=== PATIENT | female | born 1960 | race Caucasian/White ===

== ENCOUNTER 2018-03-02 21:03 | Observation (INO) ==
[2018-03-02 21:42] LABS: Basophils # 0.1 K/mcL (0.0-0.2); Basophils % 0.7 %; Eosinophils # 0.3 K/mcL (0.0-0.6); Eosinophils % 2.8 %; Hematocrit 39.8 % (35.3-44.9); Hemoglobin 13.6 g/dL (11.5-15.4); Immature Granulocytes % 0.2 % (0-4); Lymphocytes # 2.5 K/mcL (0.6-4.6); Lymphocytes % 25.5 %; Mean Corpuscular HGB Conc 34.2 g/dL (31.6-35.5); Mean Corpuscular Hemoglobin 30.5 pg (28.0-33.3); Mean Corpuscular Volume 89.2 fL (83.0-100.0); Mean Platelet Volume 10.2 fL (9.4-12.4); Monocytes # 0.6 K/mcL (0.0-1.3); Monocytes % 5.8 %; Neutrophils # 6.5 K/mcL (1.6-8.9); Platelet Count 285 K/mcL (140-400); Red Blood Count 4.46 M/mcL (3.82-4.97); Red Cell Distribution Width 12.3 % (11.5-14.5)
[2018-03-02 21:49] LABS: Prothrombin Time 11.2 Seconds (9.4-12.1)
--- NOTE | 2018-03-02 21:50 | Emergency Department Note ---
Addendum entered and electronically signed by Jesse Bull DO 03/05/18 18:30: Original Note: Disposition Clinical Impression: Chest pain Qualifiers: Chest pain type: unspecified Qualified Code(s): R07.9 - Chest pain, unspecified Disposition: Admitted As Inpatient Condition: Good Referrals: Jackie Ellison, [employer] [Primary Care Provider] - Forms: ED Satisfaction Letter Time of Disposition: 22:12 Chest Pain HPI - General Chief Complaint: ED Chest Pain Stated Complaint: CP, Sent from Time Seen by Provider: 03/02/18 21:14 Source: patient Mode of arrival: ambulatory Limitations: no limitations Vital Signs Reviewed: Yes Nursing Notes Reviewed: Yes - History of Present Illness HPI Narrative: Patient is a 57-year-old female with past medical history hyperlipidemia. She presents today due to concern for chest discomfort. She states that she was eating around 3 PM today. She states that she had a big lunch. During that meal, she started having some substernal chest discomfort. She denies noting any sensation of fullness or choking on food, did not eat anything with bones in it. She states that she ate a sandwich with lunch meat on it.. She was able to pass liquids and food after that. She describes the pain as a constant dull ache that gets sharp when she moves forward or takes a deep breath in and out. She also notes some pain in between her shoulder blades. She does note that she has some chronic back discomfort due to poor posture and receives massage therapy often. She says that this feels somewhat similar to her chronic back discomfort and is not worse and then her usual baseline. Denies any shortness of breath, fevers, nausea, vomiting, drooling, URI symptoms, abdominal pain, dysuria, hematuria. Denies any previous cardiac history such as [place] or stent placement. Denies any history of PE or DVT. She states that she went to urgent care and had an EKG performed, was given aspirin 325 mg and a Vernon and then sent here for further care. Severity scale (1-10): 6 - Related Data Home Medications Medication Instructions Recorded Confirmed Ezetimibe [Zetia] 10 mg PO DAILY 06/18/16 06/18/16 Sertraline [Zoloft] 100 mg PO DAILY 06/18/16 06/18/16 Hydrocodone. 10/29/18 Tylenol 03/02/18 Allergies Allergy/AdvReac Type Severity Reaction Status Date / Time No Known Allergies Allergy Verified 03/02/18 20:18 All systems ED: reviewed and negative except as stated. Constitutional: Denies: fever Cardiovascular: Reports: chest pain Respiratory: Denies: cough, dyspnea Gastrointestinal: Denies: abdominal pain, nausea, vomiting, diarrhea, constipation Genitourinary: Denies: urgency, dysuria, frequency, hematuria Integumentary: Denies: rash Neurological: Denies: headache, weakness, numbness, paresthesias Chest Pain PMH - Past Medical History Medical history: Reports: hyperlipidemia Surgical history: Reports: , knee replacement, orthopedic, other, other Psychiatric history: Reports: anxiety - Social History Smoking Status: Never smoker Alcohol use: Reports: none Drug use: Reports: none Physical Exam - General Limitations: no limitations General appearance: alert, in no apparent distress - Head Head exam: atraumatic, normocephalic, normal inspection - Eye Eye exam: Present: normal appearance, PERRL, EOMI - ENT ENT exam: normal exam, normal oropharynx, mucous membranes moist - Neck Neck exam: Present: normal inspection, full ROM, trachea midline - Chest Chest inspection: Present: normal inspection, symmetric chest wall rise, tenderness (Mild tenderness mid sternal to palpation the patient states is different from subjective substernal pain). Absent: rash - Respiratory Respiratory exam: Present: normal lung sounds bilaterally - Cardiovascular Cardiovascular exam: Present: regular rate, normal rhythm, normal heart sounds - Abdominal Exam Abdominal exam: Present: soft, Non-Tender. Absent: tenderness, distention, guarding, rebound, rigidity - Extremities Exam Extremities exam: Present: normal inspection, full ROM. Absent: tenderness, pedal edema - Back Exam Back exam: Present: normal inspection, full ROM. Absent: tenderness, muscle spasm, paraspinal tenderness, vertebral tenderness - Neurological Exam Neurological exam: Present: alert, oriented X3 - Psychiatric Psychiatric exam: Present: normal affect, normal mood - Skin Skin exam: Present: warm, dry, intact, normal color Course Course Narrative: Patient blood pressure mildly elevated. Otherwise, rest of the vitals within normal limits. Physical exam showed heart regular rate and rhythm, lungs clear to auscultation, abdomen soft and nontender. No tenderness of the reproducible between patient's shoulder blades, no midline or paraspinal muscle tenderness of the back. Patient did have some tenderness to palpation of the mid sternum but states that this is different than the subjective pain that she is experiencing. Currently rates her pain a 6 out of 10. She did state that she received aspirin and Vernon at urgent care prior to transfer here. She is curr ently declining any additional pain medication at this time. I do not feel that this is a food bolus impaction at this time as patient is having no difficulty with swallowing liquids, swelling medications, swelling additional food after this event. No drooling. No reflux of any food or water contents. No food consumed with bones. Patient's EKG does show some nonspecific T-wave inversions that are new from her previous EKG. Chest x-ray was negative. Troponin negative. No major abnormality on blood work. Patient has never had a stress test or heart catheter in the past. She is still having some discomfort. Her heart score is a 4. I believe that her risk factors, EKG changes, concerning story for next to keep her for observation for trending troponin levels and possible stress test in the morning. 22:28 patient was reassessed. She is having some continued chest discomfort and is now agreeable with trying some pain medication. She did not want to try morphine or nitroglycerin. We discussed fentanyl. She is agreeable with this plan. We will go ahead and give the patient 50 g of fentanyl at this time. We will proceed with the above plan. Chest X-Ray 03/02/18 21:19 IMPRESSION: No acute process. D/ / Mando Parish MD / Mando Parish MD Interpreting Provider: Mando Parish MD Vital Signs Temperature 98 F 03/02/18 21:08 Pulse Rate 70 03/02/18 21:08 Respiratory Rate 16 03/02/18 21:08 Blood Pressure 143/85 03/02/18 21:08 O2 Sat by Pulse Oximetry 96 03/02/18 21:08 Temperature 98 F 03/02/18 21:08 Pulse Rate 69 03/02/18 21:52 Respiratory Rate 20 03/02/18 21:52 Blood Pressure 122/81 03/02/18 21:52 O2 Sat by Pulse Oximetry 97 03/02/18 21:52 Oxygen Delivery Oxygen Delivery Room Air Chest Pain - MDM Narrative Medical decision making narrative: Patient blood pressure mildly elevated. Otherwise, rest of the vitals within normal limits. Physical exam showed heart regular rate and rhythm, lungs clear to auscultation, abdomen soft and nontender. No tenderness of the reproducible between patient's shoulder blades, no midline or paraspinal muscle tenderness of the back. Patient did have some tenderness to palpation of the mid sternum but states that this is different than the subjective pain that she is experiencing. Currently rates her pain a 6 out of 10. She did state that she received aspirin and Vernon at urgent care prior to transfer here. She is cur rently declining any additional pain medication at this time. I do not feel that this is a food bolus impaction at this time as patient is having no difficulty with swallowing liquids, swelling medications, swelling additional food after this event. No drooling. No reflux of any food or water contents. No food consumed with bones. Patient's EKG does show some nonspecific T-wave inversions that are new from her previous EKG. Chest x-ray was negative. Troponin negative. No major abnormality on blood work. Patient has never had a stress test or heart catheter in the past. She is still having some discomfort. Her heart score is a 4. I believe that her risk factors, EKG changes, concerning story for next to keep her for observation for trending troponin levels and possible stress test in the morning. 22:28 patient was reassessed. She is having some continued chest discomfort and is now agreeable with trying some pain medication. She did not want to try morphine or nitroglycerin. We discussed fentanyl. She is agreeable with this plan. We will go ahead and give the patient 50 g of fentanyl at this time. We will proceed with the above plan. - Medical Records Medical records reviewed: Yes I reviewed the patient's medical records. - Lab Data Lab results reviewed: Yes I reviewed the patient's lab results. Result diagrams: 03/02/18 21:20 03/02/18 21:20 Lab Results 03/02/18 03/02/18 03/02/18 Range/Units 21:19 21:20 21:20 WBC 10.0 (4.3-11.1) K/mcL RBC 4.46 (3.82-4.97) M/mcL Hgb 13.6 (11.5-15.4) g/dL Hct 39.8 (35.3-44.9) % MCV 89.2 (83.0-100.0) fL MCH 30.5 (28.0-33.3) pg MCHC 34.2 (31.6-35.5) g/dL RDW 12.3 (11.5-14.5) % Plt Count 285 (140-400) K/mcL MPV 10.2 (9.4-12.4) fL Immature Gran % 0.2 (0-4) % Seg Neutrophils % 65.0 % Lymphocytes % 25.5 % Monocytes % 5.8 % Eosinophils % 2.8 % Basophils % 0.7 % Neutrophils # 6.5 (1.6-8.9) K/mcL Lymphocytes # 2.5 (0.6-4.6) K/mcL Monocytes # 0.6 (0.0-1.3) K/mcL Eosinophils # 0.3 (0.0-0.6) K/mcL Basophils # 0.1 (0.0-0.2) K/mcL PT 11.2 (9.4-12.1) Seconds INR 1.0 APTT 35.7 (26.0-36.0) Seconds Sodium 138 (136-145) mEq/L Potassium 3.9 (3.5-5.1) mEq/L Chloride 103 (98-107) mEq/L Carbon Dioxide 27 (23-29) mEq/L BUN 19 (6-20) mg/dL Creatinine 1.00 (0.60-1.20) mg/dL Est GFR ( Amer) > 60 (> 60) Est GFR (Non-Af Amer) 57 L (> 60) BUN/Creatinine Ratio 19 (6-26) Glucose 116 H (70-105) mg/dL Calculated Osmolality 289 (280-300) Calcium 8.9 (8.6-10.3) mg/dL Troponin I < 0.03 (< 0.04) ng/mL - Radiology Data Radiology results reviewed: Yes I reviewed the patient's radiology results. Chest X-Ray 03/02/18 21:19 IMPRESSION: No acute process. D/ / Mando Parish MD / Mando Parish MD Interpreting Provider: Mando Parish MD - EKG Data EKG attestation: Yes I reviewed and interpreted this EKG. EKG results narrative: 03/02/2018 at 21:15. Normal sinus rhythm. Rate 68. [place] 194. QRS 116. QTC 4- 40. Normal axis. No acute ST elevation or depression. T-wave inversion in lead aVL, V2 that is new from previous EKG on 04/06/2010. Partial left bundle branch block present that is also present on old EKG. Heart Score - Score History: Moderately Suspicious EKG: Non Specific repolarisation Disturbance Age: 45-65 Risk Factors: 1-2 risk factors Troponin: Less than normal limit HEART Score Total: 4 S.B.A.R. - S.B.A.R. Situation: Demographics, MOA Background: Presenting Complaint, Relevant PMH, Meds, & Allergies Assessment: Vital Signs, Course and respsone to treatment, Exam Concerns, Patient/Family Expectation, Pertinant Lab Results Recommendation: Barrier(s) to disposition, Recommendation based on pending studies, treatments, or consults S.B.A.R. Report Given to: Dr Phelps
[2018-03-02 21:52] LABS: Activated Partial Thrombo Time 35.7 Seconds (26.0-36.0)
[2018-03-02 21:56] LABS: BUN/Creatinine Ratio 19 (6-26); Blood Urea Nitrogen 19 mg/dL (6-20); Calcium 8.9 mg/dL (8.6-10.3); Carbon Dioxide 27 mEq/L (23-29); Chloride 103 mEq/L (98-107); Glucose 116 mg/dL (70-105); Osmolality,Calculated 289 (280-300); Potassium 3.9 mEq/L (3.5-5.1); Sodium 138 mEq/L (136-145); Troponin I < 0.03 ng/mL (< 0.04); eGFR For Non-African Americans 57 (> 60)
--- NOTE | 2018-03-02 22:26 | Emergency Department Note ---
Disposition Clinical Impression: Chest pain Qualifiers: Chest pain type: unspecified Qualified Code(s): R07.9 - Chest pain, unspecified Disposition: Admitted As Inpatient Condition: Good Referrals: Jackie Ellison CNP [Primary Care Provider] - Forms: ED Satisfaction Letter General Adult HPI - General Chief complaint: ED Chest Pain Stated complaint: CP, Sent from Time Seen by Provider: 03/02/18 21:14 Source: patient Mode of arrival: ambulatory Limitations: no limitations - History of Present Illness Pain Scale: 6 - Related Data Home Medications Medication Instructions Recorded Confirmed Ezetimibe [Zetia] 10 mg PO DAILY 06/18/16 06/18/16 Sertraline [Zoloft] 100 mg PO DAILY 06/18/16 06/18/16 Hydrocodone. 03/02/18 Tylenol 03/02/18 Allergies Allergy/AdvReac Type Severity Reaction Status Date / Time No Known Allergies Allergy Verified 03/02/18 20:18 Constitutional: Denies: fever Cardiovascular: Reports: chest pain Respiratory: Denies: cough, dyspnea Gastrointestinal: Denies: abdominal pain, nausea, vomiting, diarrhea, constipation Genitourinary: Denies: urgency, dysuria, frequency, hematuria Integumentary: Denies: rash Neurological: Denies: headache, weakness, numbness, paresthesias Past Medical History - Past Medical History Medical history: Reports: hyperlipidemia Surgical history: Reports: , knee replacement, orthopedic, other, other Psychiatric history: Reports: anxiety - Social History Smoking Status: Never smoker Smokeless Tobacco Status: No Alcohol use: Reports: none Drug use: Reports: none Physical Exam - General Limitations: no limitations General appearance: alert, in no apparent distress Course Vital Signs Temperature 98 F 03/02/18 21:08 Pulse Rate 70 03/02/18 21:08 Respiratory Rate 16 03/02/18 21:08 Blood Pressure 143/85 03/02/18 21:08 O2 Sat by Pulse Oximetry 96 03/02/18 21:08 Temperature 98 F 03/02/18 21:08 Pulse Rate 69 03/02/18 21:52 Respiratory Rate 20 03/02/18 21:52 Blood Pressure 122/81 03/02/18 21:52 O2 Sat by Pulse Oximetry 97 03/02/18 21:52 Oxygen Delivery Oxygen Delivery Room Air Medical Decision Making - Lab Data Result diagrams: 03/02/18 21:20 03/02/18 21:20 Lab Results 03/02/18 03/02/18 03/02/18 Range/Units 21:19 21:20 21:20 WBC 10.0 (4.3-11.1) K/mcL RBC 4.46 (3.82-4.97) M/mcL Hgb 13.6 (11.5-15.4) g/dL Hct 39.8 (35.3-44.9) % MCV 89.2 (83.0-100.0) fL MCH 30.5 (28.0-33.3) pg MCHC 34.2 (31.6-35.5) g/dL RDW 12.3 (11.5-14.5) % Plt Count 285 (140-400) K/mcL MPV 10.2 (9.4-12.4) fL Immature Gran % 0.2 (0-4) % Seg Neutrophils % 65.0 % Lymphocytes % 25.5 % Monocytes % 5.8 % Eosinophils % 2.8 % Basophils % 0.7 % Neutrophils # 6.5 (1.6-8.9) K/mcL Lymphocytes # 2.5 (0.6-4.6) K/mcL Monocytes # 0.6 (0.0-1.3) K/mcL Eosinophils # 0.3 (0.0-0.6) K/mcL Basophils # 0.1 (0.0-0.2) K/mcL PT 11.2 (9.4-12.1) Seconds INR 1.0 APTT 35.7 (26.0-36.0) Seconds Sodium 138 (136-145) mEq/L Potassium 3.9 (3.5-5.1) mEq/L Chloride 103 (98-107) mEq/L Carbon Dioxide 27 (23-29) mEq/L BUN 19 (6-20) mg/dL Creatinine 1.00 (0.60-1.20) mg/dL Est GFR ( Amer) > 60 (> 60) Est GFR (Non-Af Amer) 57 L (> 60) BUN/Creatinine Ratio 19 (6-26) Glucose 116 H (70-105) mg/dL Calculated Osmolality 289 (280-300) Calcium 8.9 (8.6-10.3) mg/dL Troponin I < 0.03 (< 0.04) ng/mL Attestation Statement - Attestation Attestation: I examined this patient and my medical decision-making was reviewed with the Resident Physician. I agree with the documented findings, disposition and treatment plan as described except to the extent set forth below. 57-year-old female presents emergency room for chest pain. Substernal in nature. She still having intermittent chest discomfort. Worse with exhalation. Patient has a heart score of 4. Due to the intermittent chest discomfort and heart score forward admit the patient for ACS observation. She has no previous history of any coronary problems.
[2018-03-02] MEDS ORDERED: *HR* FentaNYL (PF) 100 MCG/2 ML VIAL IVP ONE (22:28)
[2018-03-02] MEDS ORDERED: Ketorolac 15 MG/ML VIAL IVP ONE (23:22)
[2018-03-03] MEDS ORDERED: Naloxone 0.4 MG/ML INJ IVP PRN (00:16)
[2018-03-03] MEDS ORDERED: Nitroglycerin 0.4 MG TAB.SUBL SL PRN (00:18)
[2018-03-03] MEDS ORDERED: Melatonin 3 MG TABLET PO PRN (00:19)
[2018-03-03] MEDS ORDERED: 0.9 % Sodium Chloride 1,000 ML IVC SCH (00:30)
[2018-03-03 04:07] LABS: Hematocrit 36.6 % (35.3-44.9); Mean Corpuscular HGB Conc 35.5 g/dL (31.6-35.5); Mean Corpuscular Hemoglobin 31.3 pg (28.0-33.3); Platelet Count 260 K/mcL (140-400); Red Blood Count 4.16 M/mcL (3.82-4.97); Red Cell Distribution Width 12.6 % (11.5-14.5)
[2018-03-03 04:26] LABS: Alanine Aminotransferase 26 Units/L (7-52); Albumin 4.2 g/dL (3.5-5.7); Albumin/Globulin Ratio 2.2 (1.1-2.2); Alkaline Phosphatase 53 Units/L (34-104); Aspartate Amino Transferase 17 Units/L (13-39); BUN/Creatinine Ratio 23 (6-26); Bilirubin,Total 0.3 mg/dL (0.3-1.0); Blood Urea Nitrogen 17 mg/dL (6-20); Carbon Dioxide 26 mEq/L (23-29); Chloride 104 mEq/L (98-107); Globulin 1.9 g/dL (2.4-3.5); Glucose 95 mg/dL (70-105); Osmolality,Calculated 285 (280-300); Sodium 137 mEq/L (136-145); Total Protein 6.1 g/dL (6.4-8.9); eGFR For Non-African Americans > 60 (> 60)
--- NOTE | 2018-03-03 04:48 | Internal Med History&Physical ---
Date of Encounter: 03/03/18 Time of Encounter: 04:48 Internal Medicine - H&P: HPI Chief complaint: Chest Pain History of present illness: Patient is a 57-year-old female with past medical history hyperlipidemia who presents with chest pain. Patient states that around 3 PM today while eating lunch started having some substernal chest discomfort. Pain described as a co nstant dull ache aggravated when she moves forward or takes a deep breath in and out. She also notes some pain in between her shoulder blades. She does note that she has some chronic back discomfort due to poor posture and receives massage therapy often. She says that this feels somewhat similar to her chronic back discomfort and is not worse and then her usual baseline. Denies any shortness of breath, fevers, nausea, vomiting, drooling, URI symptoms, abdominal pain, dysuria, hematuria. Denies any previous cardiac history such as [place] or stent placement. Denies any history of PE or DVT. She states that she went to urgent care and had an EKG performed, was given aspirin 325 mg and a [place] and then sent here for further care. Past Med Surg Social Fam HX - Past Medical History Medical history: hyperlipidemia, thyroid disease Additional medical history: hypothyroidism Psychiatric history: anxiety - Past Surgical History Surgical History: , knee replacement, orthopedic, other, other Additional surgical history: Bilat knnes, Bilat joint fusion feet, colonoscopy, bilat catarcts - Social History Smoking Status: Never smoker Smokeless Tobacco Status: No Alcohol use: none Drug use: none Internal Medicine - H&P: Meds Ezetimibe [Zetia] 10 mg PO DAILY 06/18/16 [History] Sertraline [Zoloft] 100 mg PO DAILY 06/18/16 [History] Acetaminophen [Tylenol] 500 mg PO Q6H PRN 03/02/18 [History] Cholecalciferol (Vitamin D3) [Vitamin D3] 10,000 unit PO QAM 03/02/18 [History] Hydrocodone/Acetaminophen [Hydrocodone-Acetamin 5-300 mg] 1 tab PO DAILY PRN 03/02/18 [History] Progesterone,Micronized [Progesterone] 200 mg PO QPM 03/02/18 [History] Thyroid,Pork [Nature-Throid] 48.75 mg PO QAM 03/02/18 [History] Zolpidem [Ambien] 10 mg PO HS 03/02/18 [History] Allergy/AdvReac Type Severity Reaction Status Date / Time No Known Allergies Allergy Verified 03/02/18 20:18 All Systems PM: A 10-system review of systems was performed and is negative for pertinent findings except as documented above in the HPI. - Constitutional Constitutional: no chills, no fever(s), no night sweats - EENT Eyes: no change in vision, no discharge, no pain, no photophobia Ears: no ear discharge, no ear pain, no tinnitus Nose, mouth and throat: no dysphagia, no nasal discharge, no neck pain, no sore throat - Cardiovascular Cardiovascular ROS IM: no chest pain, no diaphoresis, no dyspnea, no lightheadedness, no palpitations, no syncope - Respiratory Respiratory: no cough, no dyspnea, no wheezing, no excessive phlegm production - Gastrointestinal Gastrointestinal: no abdominal pain, no diarrhea, no hematemesis, no hematochezia, no melena, no nausea, no vomiting - Genitourinary Genitourinary: no change in urinary stream, no dysuria, no flank pain, no hematuria - Musculoskeletal Musculoskeletal ROS IM: no numbness, no tingling - Integumentary Integumentary IM: no rash, no unusual bruising - Neurological Neurological ROS: no confusion, no convulsions, no focal weakness, no numbness, no tingling, no tremor(s) - Hematologic/Lymphatic Hematologic/Lymphatic: no easy bruising - Constitutional Vitals: Temp Pulse Resp BP Pulse Ox 97.6 F 68 17 107/68 93 03/03/18 02:59 03/03/18 02:59 03/03/18 02:59 03/03/18 02:59 03/03/18 02:59 Exam: General: Alert and oriented Skin:Normal color, no rash, no lesions. HEENT:EOM, pupils equal, round and reactive. Cardiovascular:Normal S1 & S2, no rubs, murmurs or gallops. No JVD. Pulse regular. Lungs:Normal breath sounds, no wheezes or crackles. Abdomen:Soft, non-tender, no rigidity. Extremities:No deformity, no edema or tenderness, no joint swelling or clubbing. Neurological:Normal cognition and motor skills. Pulses:Carotid and radial pulses normal +2. Rest of the physical exam is non contributory Internal Med - H&P Results - Labs CBC & Chem 7: 03/03/18 03:18 03/03/18 03:18 Labs: Short CBC 03/02/18 03/03/18 Range/Units 21:20 03:18 WBC 10.0 7.5 (4.3-11.1) K/mcL Hgb 13.6 13.0 (11.5-15.4) g/dL Hct 39.8 36.6 (35.3-44.9) % Plt Count 285 260 (140-400) K/mcL Neutrophils # 6.5 (1.6-8.9) K/mcL BMP 03/02/18 03/03/18 21:20 03:18 Sodium 138 137 Potassium 3.9 4.0 Chloride 103 104 Carbon Dioxide 27 26 BUN 19 17 Creatinine 1.00 0.73 Glucose 116 H 95 Calcium 8.9 9.0 Cardiac Enzymes 03/02/18 03/03/18 Range/Units 21:20 03:18 Troponin I < 0.03 < 0.03 (< 0.04) ng/mL Liver Function 03/03/18 Range/Units 03:18 Total Bilirubin 0.3 (0.3-1.0) mg/dL AST 17 (13-39) Units/L ALT 26 (7-52) Units/L Alkaline Phosphatase 53 (34-104) Units/L Albumin 4.2 (3.5-5.7) g/dL - Impressions ITS Impressions Chest X-Ray 03/02/18 21:19 IMPRESSION: No acute process. D/ / Mando Parish MD / Mando Parish MD Interpreting Provider: Mando Parish MD - Assessment and plan (1) Chest pain Current Visit: Yes Status: Acute Assessment and plan: Atypical chest pain. Patient has risk factors for age and hyperlipidemia. She is a nonsmoker and does not drink. EKG was unremarkable. Initial troponin was negative. Telemetry Trend troponin Sublingual O's and when necessary Echocardiogram Stress test in the morning Qualifiers: Chest pain type: unspecified Qualified Code(s): R07.9 - Chest pain, unspecified (2) Hyperlipidemia Current Visit: Yes Status: Acute Assessment and plan: Continue with Ezetimibe Qualifiers: Hyperlipidemia type: unspecified Qualified Code(s): E78.5 - Hyperlipidemia, unspecified (3) Hypothyroidism Current Visit: Yes Status: Acute Assessment and plan: Continue home thyroid medication Qualifiers: Hypothyroidism type: unspecified Qualified Code(s): E03.9 - Hypothyroidism, unspecified (4) DVT prophylaxis Current Visit: Yes Status: Acute Assessment and plan: Subcutaneous heparin - Time Spent With Patient Total time spent is greater than 50% in coordination of care (as documented) at patient's floor/unit and/or counseling patient:
[2018-03-03] MEDS ORDERED: *HR* Heparin 5,000 UNIT/ML VIAL SQ SCH (06:00)
[2018-03-03] MEDS ORDERED: Regadenoson 0.4 MG/5 ML SYRINGE IVP ONE (07:46)
[2018-03-03] MEDS ORDERED: Cholecalciferol (D-3) 1,000 UNIT TABLET PO SCH (09:00)
[2018-03-03] MEDS ORDERED: (Ezetimibe [Zetia] 10 MG) PO SCH (09:00)
[2018-03-03] MEDS ORDERED: THYROID PORK 48.75 MG PO SCH (09:00)
[2018-03-03 11:20] VITALS: BP 115/74
--- NOTE | 2018-03-03 11:43 | Discharge Summary ---
- NOTES TO OUTPATIENT PROVIDER Notes to Outpatient Provider: f/u with PCP in one week. Please come back for part 2 stress test tomorrow 7 AM at [facility] Orders not resulted at time of discharge: Pending orders 03/03/18 00:20 NM melina perf SPECT multi [NM] Routine 03/03/18 09:20 Troponin I Q6H Date of Encounter: 03/03/18 Time of Encounter: 11:39 - Discharge Diagnosis (1) Chest pain Priority: Primary Status: Acute Qualifiers: Chest pain type: unspecified Qualified Code(s): R07.9 - Chest pain, unspecified (2) Hyperlipidemia Priority: Secondary Status: Acute Qualifiers: Hyperlipidemia type: unspecified Qualified Code(s): E78.5 - Hyperlipidemia, unspecified (3) DVT prophylaxis Priority: Secondary Status: Acute (4) Hypothyroidism Priority: Secondary Status: Acute Qualifiers: Hypothyroidism type: unspecified Qualified Code(s): E03.9 - Hypothyroidism, unspecified Hospital course: Ms. Abdi is a 57 year old female with past medical history hyperlipidemia pt presented to ER with chest pain. Patient stated that around 3 PM while eating lunch started having some substernal chest discomfort. Pain described as a constant dull and burning ache aggravated when she moves forward or takes a deep breath in and out. Pt was admitted in the hospital and placed her on panel monitor. Her serial troponin were negative. She did got for nuclear stress test today, pt does require 2 day stress test due to her BMP at 39. Pt do not wanted to stay in the hospital for part to tomorrow. Since pt denied any CP, no EKG changes noticed and her troponin are negative so will d/c her home today. Recommend to come back for part 2 in AM. I got her contact number will discuss with about test results in AM, also will send the results to PCP .Reviewed [facility] did now show any septal motion abnormality. - Time Spent with Patient Total time spent providing and/or coordinating discharge services: - Discharge Medications Prescriptions: Aspirin [Adult Aspirin] 81 mg PO DAILY #30 tablet.dr Morelos Medications: Ezetimibe [Zetia] 10 mg PO DAILY 06/18/16 [History] Sertraline [Zoloft] 100 mg PO DAILY 06/18/16 [History] Acetaminophen [Tylenol] 500 mg PO Q6H PRN 03/02/18 [History] Cholecalciferol (Vitamin D3) [Vitamin D3] 10,000 unit PO QAM 03/02/18 [History] Hydrocodone/Acetaminophen [Hydrocodone-Acetamin 5-300 mg] 1 tab PO DAILY PRN 03/02/18 [History] Progesterone,Micronized [Progesterone] 200 mg PO QPM 03/02/18 [History] Thyroid,Pork [Nature-Throid] 48.75 mg PO QAM 03/02/18 [History] Zolpidem [Ambien] 10 mg PO HS 03/02/18 [History] Aspirin [Adult Aspirin] 81 mg PO DAILY #30 tablet.dr 03/03/18 [Rx] Allergies/Adverse Reactions: Allergy/AdvReac Type Severity Reaction Status Date / Time No Known Allergies Allergy Verified 03/02/18 20:18 Date of admission: 03/03/18 00:01 Primary care physician: Jackie Ellison CNP - Constitutional Vitals: Temp Pulse Resp BP Pulse Ox 97.9 F 72 18 115/74 95 03/03/18 11:17 03/03/18 11:17 03/03/18 11:17 03/03/18 11:17 03/03/18 11:17 General appearance: Present: A&O X 3, no acute distress, answers questions appropriately Exam: aa - Head Head exam: Present: atraumatic, normal inspection - Neck Neck exam general surgery: Present: supple - Respiratory Respiratory exam: Present: decreased breath sounds. Absent: rales, respiratory distress, rhonchi, wheezes - Cardiovascular Cardiovascular exam: Present: RRR, +S1, +S2 - GI/Abdominal GI/Abdominal exam: Present: normal bowel sounds, soft. Absent: rebound, rigid, tenderness - Extremities Exam Extremities exam: Absent: calf tenderness, pedal edema, tenderness - Back Exam Back exam: Absent: CVA tenderness (L), CVA tenderness (R) - Neurological Exam Neurological exam: Present: alert, oriented X3 - Psychiatric Psychiatric exam: Present: normal affect, normal mood - Patient Status Disposition: Home, Self-Care Condition: Good Overall status at discharge: patient is back to baseline - Discharge Instructions Instructions: Cardiac Stress Test (DC), Chest Pain (DC) Follow Up With: Jackie Ellison CNP [Primary Care Provider] - (Please call Jackie Ellison to schedule follow up in 7 to 10 days.) Additional Instructions: Please return to [facility] on 03/04 at 7:00 AM for the second part of your stress test. Nothing to eat or drink after midnight. No Nicotine or caffeine after midnight. Please bring medicatons with you to your appointment. - Diet and Activity Activity: increase activity as tolerated Diet: low salt diet
== END 2018-03-03 12:16 | disposition home or self-care (01) ==
LOC: 3BNU 21:03 → EMEROOARM 21:03 → SUATTDRO 03-03 00:01 → 3BNU 03-03 00:15
PROVIDERS: ADMIT Internal Medicine; ATTEND Family Medicine